=== PATIENT | male | born 1990 | race Caucasian/White ===

== ENCOUNTER 2016-08-28 22:12 | Emergency (ER) | payer OTHER ==
[~2016-08-28] VITALS: Ht 182.9 cm; Wt 98.6 kg
[2016-08-28 23:10] VITALS: BP 135/74
[2016-08-28 23:36] LABS: BASO % 0 % (0-3); EOS % 0 % (0-3); HEMATOCRIT 50.3 % (39.0-53.0); HEMOGLOBIN 16.9 g/dL (13.0-17.5); LYMPH # 1.4 x10^3/uL (1.0-4.8); LYMPH % 16 % (24-48); MEAN CORPUSCULAR HEMOGLOBIN 29 pg (25-35); MEAN CORPUSCULAR HGB CONC 34 g/dL (31-37); MEAN CORPUSCULAR VOLUME 86 fL (79-100); MONO % 17 % (0-9); NEUT % 67 % (31-73); PLATELET COUNT 211 x10^3/uL (140-400); RED BLOOD COUNT 5.83 x10^6/uL (4.30-5.70); RED CELL DISTRIBUTION WIDTH 13.4 % (11.5-14.5); WHITE BLOOD COUNT 8.8 x10^3/uL (4.0-11.0)
[2016-08-28 23:37] LABS: BILIRUBIN,URINE NEGATIVE (NEG); GLUCOSE,URINE NEGATIVE (NEG); NITRITE,URINE NEGATIVE (NEG); PH,URINE 5.5; PROTEIN,URINE NEGATIVE (NEG-TRACE)
[2016-08-28 23:45] LABS: BACTERIA,URINE FEW /HPF (0-FEW); RBC,URINE 0 /HPF (0-2); SQUAMOUS EPITHELIAL CELL,UR FEW /LPF
[2016-08-28] MEDS ORDERED: IV NORMAL SALINE 1000ML BAG 1,000 ML IV ONE (23:45)
[2016-08-28 23:49] LABS: CALCIUM 9.4 mg/dL (8.5-10.1); GFR 89.6; POTASSIUM 3.7 mmol/L (3.5-5.1)
[2016-08-28 23:55] LABS: ALBUMIN 3.6 g/dL (3.4-5.0); DIRECT BILIRUBIN 0.1 mg/dL (0.0-0.2); TOTAL BILIRUBIN 0.6 mg/dL (0.2-1.0); TOTAL PROTEIN 8.5 g/dL (6.4-8.2)
[2016-08-29 00:28] LABS: OBC FLU VALID
[2016-08-29] MEDS ORDERED: CONTRAST GIVEN MC PRN (00:45)
[2016-08-29] MEDS ORDERED: DICYCLOMINE 20 MG/2 ML AMPUL. IM ONE (01:00)
[2016-08-29] MEDS ORDERED: IOHEXOL 300 MG/ML 75 ML VIAL IV ONE (01:00)
--- NOTE | 2016-08-29 02:00 | RAD ---
INDICATION: Abdomen pain. COMPARISON: None TECHNIQUE: Axial CT images obtained through the abdomen and pelvis. Intravenous contrast was utilized. One or more of the following individualized dose reduction techniques were utilized for this examination: 1. Automated exposure control; 2. Adjustment of the mA and/or kV according to patient size; 3. Use of iterative reconstruction technique. FINDINGS: Abdominal aorta not aneurysmal. Mild patchy opacity left lung base. No intrahepatic bile duct dilation. No peripancreatic edema. Spleen unremarkable. No hydronephrosis. No definite evidence of small bowel obstruction. Bladder unremarkable within limits of CT. Appendix does not appear grossly inflamed Small fat containing umbilical hernia. IMPRESSION: The appendix does not appear grossly inflamed. No evidence of bowel obstruction. Mild nodularity at left lung base. Could be infectious or inflammatory in nature. Could also be from nodular atelectasis. Electronically signed by: Zachary Reyes (Aug 29, 2016 01:57:55)
[2016-08-29] MEDS ORDERED: OSEL75CA PO (02:14)
[2016-08-29] MEDS ORDERED: IBUP200T77 PO (02:14)
[2016-08-29] MEDS ORDERED: ONDA4TAB10 SL (02:14)
--- NOTE | 2016-08-29 02:14 | PHYS DOC ---
Past Medical History Past Medical History: Asthma Past Surgical History: No Surgical History Alcohol Use: Occasionally Drug Use: None Adult General Chief Complaint Chief Complaint: ABDOMINAL PAIN HPI HPI 25-year-old male presenting to the emergency department today with nausea vomiting and a recent respiratory illness. He also has abdominal pain that he describes his sharp periumbilical moderate to severe intermittent and present for greater than 24 hours. He recently was seen at the [facility]. Review of systems is negative for chest pain shortness of breath. He has had a cough with fevers muscle aches and chills. All other review of systems is negative unless otherwise noted in history of present illness. Review of Systems Review of Systems SEE ABOVE. Current Medications Current Medications Current Medications Medications (Trade) Dose Ordered Sig/James Start Time Stop Time Status Last Admin Dose Admin Dicyclomine HCl (Bentyl) 10 mg 1X ONCE 08/29/16 01:00 08/29/16 01:01 DC 08/29/16 00:55 10 MG Info (Do NOT chart on this entry -- for MONITORING) 1 each PRN DAILY PRN 08/29/16 00:45 08/29/16 02:39 DC Iohexol (Omnipaque 300 Mg/ml) 75 ml 1X ONCE 08/29/16 01:00 08/29/16 01:01 DC 08/29/16 00:58 75 ML Sodium Chloride (Iv Sodium Chloride 0.9% 1000ml Bag) 1,000 ml @ 1,000 mls/hr 1X ONCE 08/28/16 23:45 08/29/16 00:44 DC 08/28/16 23:34 1,000 MLS/HR Allergies Allergies Allergies Coded Allergies Type Severity Reaction Last Updated Verified No Known Drug Allergies 08/28/16 No Physical Exam Physical Exam Constitutional: Well developed, well nourished, no acute distress, non-toxic appearance. HENT: Normocephalic, atraumatic, bilateral external ears normal, oropharynx moist, no oral exudates, nose normal. [] Eyes: PERRLA, EOMI, conjunctiva normal, no discharge. [] Neck: Normal range of motion, no tenderness, supple, no stridor. Cardiovascular:Heart rate regular rhythm, no murmur [] Lungs & Thorax: Bilateral breath sounds clear to auscultation Abdomen: Soft nontender abdomen without rebound tenderness or guarding present. Negative McBurneys point. Negative Esparza sign. No ecchymosis present. Skin: Warm, dry, no erythema, no rash. [] Back: No tenderness, no CVA tenderness. Extremities: No tenderness, no cyanosis, no clubbing, ROM intact, no edema. [] Neurologic: Alert and oriented X 3, normal motor function, normal sensory function, no focal deficits noted. Psychologic: Affect normal, judgement normal, mood normal. [] Current Patient Data Vital Signs Vital Signs Date Time Temp Pulse Resp B/P Pulse Ox O2 Delivery O2 Flow Rate FiO2 08/28/16 23:10 98.9 79 17 135/74 96 Room Air 98.9 Lab Values Laboratory Tests Test 08/28/16 23:17 08/28/16 23:48 White Blood Count 8.8x10^3/uL (4.0-11.0) Red Blood Count 5.83x10^6/uL (4.30-5.70) H Hemoglobin 16.9g/dL (13.0-17.5) Hematocrit 50.3% (39.0-53.0) Mean Corpuscular Volume 86fL (79-100) Mean Corpuscular Hemoglobin 29pg (25-35) Mean Corpuscular Hemoglobin Concent 34g/dL (31-37) Red Cell Distribution Width 13.4% (11.5-14.5) Platelet Count 211x10^3/uL (140-400) Neutrophils (%) (Auto) 67% (31-73) Lymphocytes (%) (Auto) 16% (24-48) L Monocytes (%) (Auto) 17% (0-9) H Eosinophils (%) (Auto) 0% (0-3) Basophils (%) (Auto) 0% (0-3) Neutrophils # (Auto) 5.9x10^3uL (1.8-7.7) Lymphocytes # (Auto) 1.4x10^3/uL (1.0-4.8) Monocytes # (Auto) 1.5x10^3/uL (0.0-1.1) H Eosinophils # (Auto) 0.0x10^3/uL (0.0-0.7) Basophils # (Auto) 0.0x10^3/uL (0.0-0.2) Urine Color Yellow Urine Clarity Clear Urine pH 5.5 Urine Specific [place] 1.020 Urine Protein Negativemg/dL (NEG-TRACE) Urine Glucose (UA) Negativemg/dL (NEG) Urine Ketones (Stick) 15mg/dL (NEG) Urine Blood Negative (NEG) Urine Nitrite Negative (NEG) Urine Bilirubin Negative (NEG) Urine Urobilinogen Dipstick 1.0mg/dL (0.2 mg/dL) Urine Leukocyte Esterase Negative (NEG) Urine RBC 0/HPF (0-2) Urine WBC 1-4/HPF (0-4) Urine Squamous Epithelial Cells Few/LPF Urine Bacteria Few/HPF (0-FEW) Urine Mucus Mod/LPF Sodium Level 140mmol/L (136-145) Potassium Level 3.7mmol/L (3.5-5.1) Chloride Level 102mmol/L (98-107) Carbon Dioxide Level 23mmol/L (21-32) Anion Gap 15 (6-14) H Blood Urea Nitrogen 11mg/dL (8-26) Creatinine 1.0mg/dL (0.7-1.3) Estimated GFR (Cockcroft-Gault) 89.6 Glucose Level 87mg/dL (70-99) Lactic Acid Level 1.0mmol/L (0.4-2.0) Calcium Level 9.4mg/dL (8.5-10.1) Total Bilirubin 0.6mg/dL (0.2-1.0) Direct Bilirubin 0.1mg/dL (0.0-0.2) Aspartate Amino Transferase (AST) 37U/L (15-37) Alanine Aminotransferase (ALT) 53U/L (16-63) Alkaline Phosphatase 117U/L (46-116) H Troponin I Quantitative < 0.017ng/mL (0.000-0.055) BE-Vob-M-Type Natriuretic Peptide 5pg/mL (0-124) Total Protein 8.5g/dL (6.4-8.2) H Albumin 3.6g/dL (3.4-5.0) Lipase 95U/L (73-393) Influenza Type A Antigen Positive (NEGATIVE) Influenza Type B Antigen Negative (NEGATIVE) Laboratory Tests 08/28/16 23:17 Laboratory Tests 08/28/16 23:17 EKG EKG [] Radiology/Procedures Radiology/Procedures [] Course & Med Decision Making Course & Med Decision Making Pertinent Labs and Imaging studies reviewed. (See chart for details) [] 25-year-old male presenting to the emergency department today with recent respiratory symptoms and nausea with vomiting and abdominal pain. On examination the patient's vital signs afebrile with normal vital signs. Physical exam otherwise unremarkable with a nontender abdomen. Given the nature the patient's description of the abdominal pain being periumbilical blood work and CT the abdomen was obtained which was not suggestive of appendicitis. Influenza testing positive. The patient was prescribed Tamiflu, ibuprofen and Zofran to follow-up with his primary care provider over the next 2-3 days. In the emergency department his pain was treated with intramuscular Bentyl. Dragon Disclaimer Dragon Disclaimer This electronic medical record was generated, in whole or in part, using a voice recognition dictation system. Departure Departure Impression: Primary Impression: Influenza Disposition: HOME, SELF-CARE Condition: STABLE Referrals: ALFREDO ISIDRO (PCP) Patient Instructions: Influenza, Adult Additional Instructions: Thank you for allowing us to participate in your care today. Followup with your primary care physician in 3 days if your symptoms do not improve. If you do not have a primary care provider you can ask for a list of our primary care providers. Return to the emergency department you have any new or concerning findings. This should be evaluated by the primary care physician and any necessary consulting services for continued management within a few days after discharge. Return to emergency room if you have any new or concerning symptoms including but not limited to fever, chills, nausea, vomiting, intractable pain, any new rashes, chest pain, shortness of air, uncontrolled bleeding, difficulty breathing, and/or vision loss. Scripts Ondansetron (Zofran Odt)4 Mg Tab.rapdis1 Tab SL PRN Q8HRS PRN NAUSEA #6 TAB Prov:MARIFER BAUTISTA MD 08/29/16 Ibuprofen 200 Mg [id number] Mg PO PRN Q6HRS PRN INFLAMMATION #30 TAB Prov:MARIFER BAUTISTA MD 08/29/16 Oseltamivir Phosphate (Tamiflu)75 Mg Capsule1 Cap PO BID #10 CAP Prov:MARIFER BAUTISTA MD 08/29/16 MARIFER BAUTISTA MD Aug 29, 2016 02:14
--- NOTE | 2016-08-29 09:24 | EKG ---
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
== END 2016-08-29 02:20 | disposition home or self-care (01) ==
LOC: ER 22:12
DX: J11.1 Influenza due to unidentified influenza virus with other respiratory manifestations (principal); R10.33 Periumbilical pain; J45.909 Unspecified asthma, uncomplicated
CPT/HCPCS: 36415; 74177; 80048; 80076; 81001; 83605; 83690; 83880; 84484; 85027; 87804; 93005; 96360; 96372; 99285; J0500; J7030; Q9967

== ENCOUNTER 2016-11-13 14:51 | Emergency (ER) | payer OTHER ==
[~2016-11-13] VITALS: Ht 177.8 cm; Wt 98.4 kg
[~2016-11-13 14:51] MED LIST: IBUP200T77 PO; ONDA4TAB10 SL; OSEL75CA PO
[2016-11-13 15:28] VITALS: BP 157/70
[2016-11-13] MEDS ORDERED: LIDOCAINE 1% / SOD BICARB 8.4% 20 ML VIAL. IJ ONE (15:30)
--- NOTE | 2016-11-13 15:37 | PHYS DOC ---
Past Medical History Past Medical History: Asthma Past Surgical History: No Surgical History Alcohol Use: Occasionally Drug Use: None Adult General Chief Complaint Chief Complaint: INSECT BITE HPI HPI Patient is a 26 year old male presents to the emergency stating he has had a 3 day history of an area on the right lower perineal area that is tender to touch. Patient states he has had drainage coming from the area with increase pain. Tetanus immunization is up to date. Patient denies fever, chills or any nausea vomiting. Review of Systems Review of Systems Constitutional: Denies fever or chills [] Eyes: Denies change in visual acuity, redness, or eye pain [] HENT: Denies nasal congestion or sore throat [] Respiratory: Denies cough or shortness of breath [] Cardiovascular: No additional information not addressed in HPI [] GI: Denies abdominal pain, nausea, vomiting, bloody stools or diarrhea [] : Denies dysuria or hematuria [] Musculoskeletal: Denies back pain or joint pain [] Integument: Denies rash or skin lesions [] Neurologic: Denies headache, focal weakness or sensory changes [] Current Medications Current Medications Current Medications Medications (Trade) Dose Ordered Sig/James Start Time Stop Time Status Last Admin Dose Admin Lidocaine/Sodium Bicarbonate (Buffered Lidocaine 1%) 20 ml 1X ONCE 11/13/16 15:30 11/13/16 15:31 DC 11/13/16 15:41 20 ML Allergies Allergies Allergies Coded Allergies Type Severity Reaction Last Updated Verified No Known Drug Allergies 08/28/16 No Physical Exam Physical Exam Constitutional: Well developed, well nourished, no acute distress, non-toxic appearance. [] HENT: Normocephalic, atraumatic, bilateral external ears normal, oropharynx moist, no oral exudates, nose normal. [] Eyes: PERRLA, EOMI, conjunctiva normal, no discharge. [] Neck: Normal range of motion, no tenderness, supple, no stridor. [] Cardiovascular:Heart rate regular rhythm, no murmur [] Lungs & Thorax: Bilateral breath sounds clear to auscultation [] Skin: Warm, dry, no erythema, no rash. Abscess noted to the right lower buttocks area. Patient with slight drainage noted from the site. The areas very tender to touch and feels indurated. The size is approximately marble size. Back: No tenderness Extremities: No tenderness, no cyanosis, no clubbing, ROM intact, no edema. [] Neurologic: Alert and oriented X 3, normal motor function, normal sensory function, no focal deficits noted. [] Psychologic: Affect normal, judgement normal, mood normal. [] Current Patient Data Vital Signs Vital Signs Date Time Temp Pulse Resp B/P (MAP) Pulse Ox O2 Delivery O2 Flow Rate FiO2 11/13/16 15:28 99.2 93 20 97 Room Air 99.2 EKG EKG [] Radiology/Procedures Radiology/Procedures [] Course & Med Decision Making Course & Med Decision Making Pertinent Labs and Imaging studies reviewed. (See chart for details) Patient was encouraged to use warm moist packs to the area. Have the packing removed in 48 hours. He'll be provided with antibiotics as well as hydrocodone for pain and discomfort. He was instructed that this medication will cause drowsiness do not take if he needs to be alert and oriented. Also informed patient he can take ibuprofen 800 mg every 8 hours also help with pain and inflammation. Patient will be discharged home in stable condition signs symptoms to return back to emergency department provided. Patient agrees with discharge instructions treatment regimens and follow-up recommendations. [] Dragon Disclaimer Dragon Disclaimer This electronic medical record was generated, in whole or in part, using a voice recognition dictation system. Departure Departure Impression: Primary Impression: Abscess Disposition: 01 HOME, SELF-CARE Condition: STABLE Referrals: ALFREDO ISIDRO (PCP) Patient Instructions: Abscess, [id number], Acetaminophen; Hydrocodone tablets or capsules, Incision and Drainage, Care After Additional Instructions: Activity as tolerated Medication as prescribed [place] will cause drowsiness do not take if you need to be alert and oriented Ibuprofen 800 mg every 8 hours with food, stop taking if you develop upset stomach Followup with your primary care provider in 2-3 days for packing removal Return to emergency department as needed for signs and symptoms that become worse. Scripts Hydrocodone/Apap 5-325 (NORCO 5-325 TABLET) 1 Each Tablet 1 TAB PO PRN Q6HRS Y for PAIN, #12 TAB 0 Refills Prov: MISSY WELLINGTON APRN 11/13/16 Sulfamethoxazole/Trimethoprim (BACTRIM DS TABLET) 1 Each Tablet 1 TAB PO BID, #20 TAB Prov: MISSY WELLINGTON APRN 11/13/16 Incision and Drainage Incision and Drainage : Site: rigth buttock Blade Size: 11 I & D Procedure: betadine prep Progress Patient was injected with 6 ml of 1% lidocaine with site cleaned with betadine. #11 blade was used to incise the area with moderate amount of thin blood to thick yellow discharge noted. Packing was placed. MISSY WELLINGTON APRN November 13, 2016 15:37
[2016-11-13] MEDS ORDERED: SULF1TAB24 PO (15:55)
[2016-11-13] MEDS ORDERED: HYDR-971 PO (15:55)
== END 2016-11-13 16:20 | disposition home or self-care (01) ==
LOC: ER 16:19
DX: L02.31 Cutaneous abscess of buttock (principal); J45.909 Unspecified asthma, uncomplicated
CPT/HCPCS: 10060; 99283-25

== ENCOUNTER 2017-01-05 05:27 | Emergency (ER) | payer OTHER ==
[~2017-01-05] VITALS: Ht 177.8 cm; Wt 102.1 kg
[~2017-01-05 05:27] MED LIST changes: +HYDR-971 PO; +SULF1TAB24 PO
[2017-01-05] MEDS ORDERED: predniSONE 20 MG TABLET PO ONE ×2 (06:15)
[2017-01-05] MEDS ORDERED: IPRATRPIUM/ALBUTEROL 0.5/2.5MG 3 ML NEBU. NEB ONE (06:15)
--- NOTE | 2017-01-05 06:21 | PHYS DOC ---
Past Medical History Past Medical History: Asthma Past Surgical History: No Surgical History Alcohol Use: None Drug Use: None Adult General Chief Complaint Chief Complaint: ASTHMA HPI HPI 26-year-old male with a history of asthma complaining of wheezing. Patient is not a smoker and he does not have productive cough or fever. He is not feeling she has respiratory illness. Exacerbation of asthma typical for him but refractory to his home nebulizer therapy. Patient is out of his inhaler as well as his inhaled steroid. Patient is not currently on steroids. Other than his wheezing he feels well Review of Systems Review of Systems Constitutional: Denies fever or chills [] Eyes: Denies change in visual acuity, redness, or eye pain [] HENT: Denies nasal congestion or sore throat [] Respiratory: Denies cough or shortness of breath [] Cardiovascular: No additional information not addressed in HPI [] GI: Denies abdominal pain, nausea, vomiting, bloody stools or diarrhea [] : Denies dysuria or hematuria [] Musculoskeletal: Denies back pain or joint pain [] Integument: Denies rash or skin lesions [] Neurologic: Denies headache, focal weakness or sensory changes [] Endocrine: Denies polyuria or polydipsia [] Current Medications Current Medications Current Medications Medications (Trade) Dose Ordered Sig/James Start Time Stop Time Status Last Admin Dose Admin Albuterol/ Ipratropium (Duoneb) 3 ml 1X ONCE 01/05/17 06:15 01/05/17 06:16 DC 01/05/17 06:17 3 ML Prednisone (Prednisone) 20 mg 1X ONCE 01/05/17 06:15 01/05/17 06:18 DC 01/05/17 06:16 20 MG Allergies Allergies Allergies Coded Allergies Type Severity Reaction Last Updated Verified No Known Drug Allergies 08/28/16 No Physical Exam Physical Exam Well-appearing male no acute distress alert and communicative appropriately and cooperative. Mild wheezing expiratory bilaterally. No rhonchi or rales. Normal respiratory rate and pulse ox on room air. No tachycardia Remainder of exam is benign Constitutional: Well developed, well nourished, no acute distress, non-toxic appearance. [] HENT: Normocephalic, atraumatic, bilateral external ears normal, oropharynx moist, no oral exudates, nose normal. [] Eyes: PERRLA, EOMI, conjunctiva normal, no discharge. [] Neck: Normal range of motion, no tenderness, supple, no stridor. [] Cardiovascular:Heart rate regular rhythm, no murmur [] Lungs & Thorax: Bilateral breath sounds clear to auscultation [] Abdomen: Bowel sounds normal, soft, no tenderness, no masses, no pulsatile masses. [] Skin: Warm, dry, no erythema, no rash. [] Back: No tenderness, no CVA tenderness. [] Extremities: No tenderness, no cyanosis, no clubbing, ROM intact, no edema. [] Neurologic: Alert and oriented X 3, normal motor function, normal sensory function, no focal deficits noted. [] Psychologic: Affect normal, judgement normal, mood normal. [] Current Patient Data Vital Signs Vital Signs Date Time Temp Pulse Resp B/P (MAP) Pulse Ox O2 Delivery O2 Flow Rate FiO2 01/05/17 06:19 98 Room Air 01/05/17 05:56 98.1 80 20 98.1 EKG EKG [] Radiology/Procedures Radiology/Procedures chest xr with chronic changes, nad interpreted by me[] Course & Med Decision Making Course & Med Decision Making Pertinent Labs and Imaging studies reviewed. (See chart for details) History,, symptoms, and exam consistent with uncomplicated asthma exacerbation. X-ray unremarkable. No infectious prodrome Patient improved after treatment. Steroids administered. 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 She states he is out of his albuterol ampules and this will be prescribed for him. Patient also be dispensed prednisone prescription as well as Symbicort inhaler prescription and a new MDI. follow up with his primary care doctor and He is aware to return immediately for new severe or worsening symptoms Dragon Disclaimer Dragon Disclaimer This electronic medical record was generated, in whole or in part, using a voice recognition dictation system. Departure Departure Disposition: 01 HOME, SELF-CARE Condition: IMPROVED Referrals: ALFREDO ISIDRO (PCP) Patient Instructions: Asthma, Adult Additional Instructions: You have had an asthma exacerbation today. Finish prednisone as rx. use albuterol nebs and mdi as needed. use inhaled steroid for 14 days then as directed by your doctor. Follow up with your doctor tomorrow and return immediately for new , severe, or worsening symptoms. Scripts Budesonide/Formoterol Fumarate (SYMBICORT 160-4.5 MCG INHALER) 10.2 Gm Hfa.aer.ad 2 PUFF IH BID for 14 Days, #1 INHALER 3 Refills Prov: YOKASTA HERNANDEZ MD 01/05/17 Albuterol Sulfate (PROVENTIL HFA INHALER) 6.7 Gm Hfa.aer.ad 1 PUFF IH PRN Q4HRS Y for FOR ASTHMA for 1 Day, INHALER Prov: YOKASTA HERNANDEZ MD 01/05/17 Prednisone (PREDNISONE) 50 Mg Tablet 1 TAB PO DAILY, #5 TAB Prov: YOKASTA HERNANDEZ MD 01/05/17 Albuterol Sulfate (ALBUTEROL SULFATE NEB SOLN) 2.5 Mg/3 Ml Vial.neb 1 VIAL NEB PRN Q4HRS Y for WHEEZING, #50 VIAL Prov: YOKASTA HERNANDEZ MD 01/05/17 YOKASTA HERNANDEZ MD Jan 05, 2017 06:21
--- NOTE | 2017-01-05 07:15 | RAD ---
Portable AP upright view CXR: Clinical indications: Respiratory distress. History of asthma. Comparison: November 07, 2009 Findings: No acute lung infiltrate or pleural effusion or pulmonary edema or lung mass or pneumothorax is seen. The heart size, pulmonary vasculature, mediastinum and both isael are unremarkable. Impression: No acute radiographic abnormality is seen.
--- NOTE | 2017-01-05 07:18 | ACF ---
Admission Forms Criteria ASTHMA Clinical Indications for Admission to Inpatient Care (Place 'X' for any and all applicable criteria): Admission is indicated for ANY ONE of the following (1)(2)(3)(4)(5): [ ]I. Absent or markedly diminished breath sounds (silent chest) [ ]II. Oxygen saturation < 92% [ ]III. PaCO2 = / > 42 mm Hg (5.6 kPa) [ ]IV. Peak expiratory flow rate < 40% of predicted or personal best after treatment. [ ]V. Peak expiratory flow rate < 33% of predicted or personal before after treatment [ ]. Change in mental status [ ]VII. Ventilatory support required [ ]VIII. PaO2 < 60 mm Hg (8.0 kPa) [ ]IX. Cyanosis [ ]X. Cardiac dysrhythmia (e.g., bradycardia) [ ]XI. Hemodynamic instability [ ]XII. Radiographic evidence of complication requiring inpatient treatment (e.g., pneumonia, pneumothorax) [ ]XIII. Inpatient admission required rather than observation care (also use Asthma: Observation Care guideline as appropriate) because of ANY ONE of the following: [ ]a) Respiratory finding that is severe or persistent (eg, dyspnea, tachypnea, accessory muscle use) [ ]b) Airflow measurements less than 60% of predicted or personal best that persist (e.g., over 24 hours) or worsen despite treatments [ ]c) Supplemental oxygen or respiratory treatments for over 24 hours that are performable only in acute inpatient setting [ ]d) Other condition, treatment or monitoring requiring inpatient admission. Extended stay beyond goal length of stay may be needed for (26)(27)(28): [ ]a) Severe respiratory failure (23) (29) (30) [ ]b) Secondary causes and complications (25) [ ]c) Status asthmaticus [ ]d) Chronic obstructive asthma [ ]e) Older patients (29) [ ]f) Slow resolution [ ]g) Clinically significant exacerbation of comorbidities (eg, farhad. heart failure, atrial fibrillation) The original [employer] content created by [employer] has been revised. The portions of the content which have been revised are identified through the use of italic text or in bold, and [employer] has neither reviewed nor approved the modified material. All other unmodified content is copyright [facility] [employer] Please see references footnoted in the original [facility] edition 2016 ANISHA CHERY Jan 05, 2017 07:18
[2017-01-05] MEDS ORDERED: PROVENTIL HFA6.7 GM IH (07:28)
[2017-01-05] MEDS ORDERED: PRED50TA PO (07:28)
[2017-01-05] MEDS ORDERED: BUDE10.2 IH (07:28)
[2017-01-05] MEDS ORDERED: ALBU2.5V5 NEB (07:28)
[2017-01-05 07:55] VITALS: BP 131/72
== END 2017-01-05 08:04 | disposition home or self-care (01) ==
LOC: ER 05:27
DX: J45.901 Unspecified asthma with (acute) exacerbation (principal); Z79.899 Other long term (current) drug therapy
CPT/HCPCS: 71010; 94640; 99283; J7512; J7620

== ENCOUNTER 2017-01-08 05:12 | Emergency (ER) | payer OTHER ==
[~2017-01-08] VITALS: Ht 177.8 cm; Wt 99.8 kg
[~2017-01-08 05:12] MED LIST changes: +ALBU2.5V5 NEB; +BUDE10.2 IH; +PRED50TA PO; +PROVENTIL HFA6.7 GM IH
--- NOTE | 2017-01-08 05:14 | PHYS DOC ---
Past Medical History Past Medical History: Asthma Past Surgical History: No Surgical History Alcohol Use: None Drug Use: None Adult General Chief Complaint Chief Complaint: INSECT BITE HPI HPI Patient is a 26 year old -[place] male who presents with sore on his right buttocks. He states his been there since . He denies any fevers chills nausea or vomiting. He states is getting more sore. He states his tetanus shot was updated 2016. He states is not on any medicines other than albuterol for his asthma. He denies any allergies medications. Review of Systems Review of Systems Constitutional: Denies fever or chills [] Eyes: Denies change in visual acuity, redness, or eye pain [] HENT: Denies nasal congestion or sore throat [] Respiratory: Denies cough or shortness of breath [] Cardiovascular: No additional information not addressed in HPI [] GI: Denies abdominal pain, nausea, vomiting, bloody stools or diarrhea [] : Denies dysuria or hematuria [] Musculoskeletal: Denies back pain or joint pain [] Integument: Positive for rash on right buttocks. Neurologic: Denies headache, focal weakness or sensory changes [] Endocrine: Denies polyuria or polydipsia [] Current Medications Current Medications Current Medications Medications (Trade) Dose Ordered Sig/James Start Time Stop Time Status Last Admin Dose Admin Clindamycin HCl (Cleocin) 300 mg 1X ONCE 01/08/17 06:00 01/08/17 06:01 01/08/17 05:56 300 MG Lidocaine/Sodium Bicarbonate (Buffered Lidocaine 1%) 20 ml 1X ONCE 01/08/17 05:30 01/08/17 05:31 DC 01/08/17 05:37 20 ML Allergies Allergies Allergies Coded Allergies Type Severity Reaction Last Updated Verified No Known Drug Allergies 08/28/16 No Physical Exam Physical Exam Constitutional: Well developed, well nourished, no acute distress, non-toxic appearance. [] HENT: Normocephalic, atraumatic, bilateral external ears normal, oropharynx moist, no oral exudates, nose normal. [] Eyes: PERRLA, EOMI, conjunctiva normal, no discharge. [] Neck: Normal range of motion, no tenderness, supple, no stridor. [] Cardiovascular:Heart rate regular rhythm, no murmur [] Lungs & Thorax: Bilateral breath sounds clear to auscultation [] Abdomen: Bowel sounds normal, soft, no tenderness, no masses, no pulsatile masses. [] Skin: Warm, dry, erythema partially 5 x 5 cm and right buttocks with induration of 2 x 3 cm Back: No tenderness, no CVA tenderness. [] Extremities: No tenderness, no cyanosis, no clubbing, ROM intact, no edema. [] Neurologic: Alert and oriented X 3, normal motor function, normal sensory function, no focal deficits noted. [] Psychologic: Affect normal, judgement normal, mood normal. [] Current Patient Data Vital Signs Vital Signs Date Time Temp Pulse Resp B/P (MAP) Pulse Ox O2 Delivery O2 Flow Rate FiO2 01/08/17 05:15 97.7 76 16 98 Room Air 97.7 EKG EKG [] Radiology/Procedures Radiology/Procedures [] Impressions: Abscess on buttocks Course & Med Decision Making Course & Med Decision Making Pertinent Labs and Imaging studies reviewed. (See chart for details) [] Dragon Disclaimer Dragon Disclaimer This electronic medical record was generated, in whole or in part, using a voice recognition dictation system. Departure Departure Impression: Primary Impression: Abscess Disposition: HOME, SELF-CARE Condition: STABLE Referrals: ALFREDO ISIDRO (PCP) Patient Instructions: Abscess, Care After Additional Instructions: You were seen tonight for your abscess on her butt cheek. We opened it and try to drain out the infection and placed a small piece of gauze in it to help it drain. You will need to be on antibiotics for the next 10 days. He can take pain meds as needed. The pain meds or narcotic type medicine and can impair judgment and make you sleepy so do not drive your car while taking this medicine. Return ER in 3 days. If your wound gets worse, or painful, he developed fevers or other concerns please return sooner. Scripts Clindamycin Hcl (CLINDAMYCIN HCL) 300 Mg Capsule 300 MG PO TID for 10 Days, #30 CAP Prov: KILLIAN MELVIN MD 01/08/17 Hydrocodone/Apap 5-325 (NORCO 5-325 TABLET) 1 Each Tablet 1-2 TAB PO Q6HRS, #12 TAB Prov: KILLIAN MELVIN MD 01/08/17 Incision and Drainage Indication: abscess Procedure: The patient was positioned appropriately. Local anesthesia was for 3 mL of buffered lidocaine. An incision was then made over the apex of the lesion and small amount of purulent discharge material was expressed. The cavity was packed with iodoform gauze. The patients tetanus status updated as needed. The patient tolerated the procedure well. Complications: none. KILLIAN MELVIN MD Jan 08, 2017 05:14
[2017-01-08 05:15] VITALS: BP 144/90
[2017-01-08] MEDS ORDERED: HYDR-971 PO (05:27)
[2017-01-08] MEDS ORDERED: CLIN300C8 PO (05:27)
[2017-01-08] MEDS ORDERED: LIDOCAINE 1% / SOD BICARB 8.4% 20 ML VIAL. IJ ONE (05:30)
[2017-01-08] MEDS ORDERED: CLINDAMYCIN HCL 150 MG CAPSULE. PO ONE (06:00)
== END 2017-01-08 06:11 | disposition home or self-care (01) ==
LOC: ER 05:12
DX: L02.31 Cutaneous abscess of buttock (principal); J45.909 Unspecified asthma, uncomplicated
CPT/HCPCS: 10060; 87070; 87205; 99284-25

== ENCOUNTER 2017-04-29 15:20 | Emergency (ER) | payer SELFPAY ==
[~2017-04-29] VITALS: Ht 177.8 cm; Wt 99.8 kg
[~2017-04-29 15:20] MED LIST changes: +CLIN300C8 PO
[2017-04-29 15:55] VITALS: BP 144/89
[2017-04-29] MEDS ORDERED: BENZ100C PO (16:14)
[2017-04-29] MEDS ORDERED: VENTOLIN HFA18 GM INH (16:14)
[2017-04-29] MEDS ORDERED: GUAI-40 PO (16:14)
--- NOTE | 2017-04-29 16:14 | PHYS DOC ---
Past Medical History Past Medical History: Asthma Past Surgical History: No Surgical History Alcohol Use: None Drug Use: None Adult General Chief Complaint Chief Complaint: SORE THROAT HPI HPI Patient is a 26 year old male who presents with a productive cough, nasal congestion and sore throat that began 2 days ago. Review of Systems Review of Systems Constitutional: Denies fever or chills [] Eyes: Denies change in visual acuity, redness, or eye pain [] HENT: nasal congestion and sore throat [] Respiratory: cough denies shortness of breath [] Cardiovascular: No additional information not addressed in HPI [] GI: Denies abdominal pain, nausea, vomiting, bloody stools or diarrhea [] : Denies dysuria or hematuria [] Musculoskeletal: Denies back pain or joint pain [] Integument: Denies rash or skin lesions [] Neurologic: Denies headache, focal weakness or sensory changes [] Allergies Allergies Allergies Coded Allergies Type Severity Reaction Last Updated Verified I S O L A T I O N *CONTACT* Allergy Unknown 01/11/17 Yes No Known Medication Allergies Allergy Unknown 01/11/17 Yes Physical Exam Physical Exam Constitutional: Well developed, well nourished, no acute distress, non-toxic appearance. [] HENT: Normocephalic, atraumatic, bilateral external ears normal, oropharynx moist, no oral exudates, nose normal. [] Eyes: PERRLA, EOMI, conjunctiva normal, no discharge. [] Neck: Normal range of motion, no tenderness, supple, no stridor. [] Cardiovascular:Heart rate regular rhythm, no murmur [] Lungs & Thorax: Bilateral breath sounds clear to auscultation [] Abdomen: Bowel sounds normal, soft, no tenderness, no masses, no pulsatile masses. [] Skin: Warm, dry, no erythema, no rash. [] Back: No tenderness, no CVA tenderness. [] Extremities: No tenderness, no cyanosis, no clubbing, ROM intact, no edema. [] Neurologic: Alert and oriented X 3, normal motor function, normal sensory function, no focal deficits noted. [] Psychologic: Affect normal, judgement normal, mood normal. [] Current Patient Data Vital Signs Vital Signs Date Time Temp Pulse Resp B/P (MAP) Pulse Ox O2 Delivery O2 Flow Rate FiO2 04/29/17 15:55 98.4 85 20 99 Room Air 98.4 EKG EKG [] Radiology/Procedures Radiology/Procedures [] Course & Med Decision Making Course & Med Decision Making Pertinent Labs and Imaging studies reviewed. (See chart for details) This is a 26-year-old male patient presented to the ED today with upper respiratory infection symptoms including running nose, cough and sore throat. Negative rapid strep. Symptoms are viral. Discharged with Mucinex DM. Tylenol/ Motrin for pain or fever. He requested a prescription for albuterol inhaler for his asthma. Rx was given. Follow-up with his PCP in 1-2 weeks. Dragon Disclaimer Dragon Disclaimer This electronic medical record was generated, in whole or in part, using a voice recognition dictation system. Departure Departure Impression: Primary Impression: Upper respiratory infection Additional Impressions: Viral pharyngitis Cough Disposition: HOME, SELF-CARE Condition: STABLE Referrals: ALFREDO ISIDRO (PCP) follow up in one weeK Patient Instructions: Cough, Adult, [id number], Upper Respiratory Infection, Adult, Viral Pharyngitis Additional Instructions: You were seen with symptoms consistent of viral illness. Use the prescribed medicines as ordered. Follow-up with your doctor in 1-2 weeks. Rest, push fluids. Take Tylenol every 4 hours and Motrin 6 hours as needed for pain. Scripts Guaifenesin/Pseudoephedrne Hcl (MUCINEX D ER TABLET) 1 Each Tab.er.12h 1 TAB PO BID, #20 TAB Prov: CRISTINA GUADALUPE APRN 04/29/17 Benzonatate (TESSALON PERLE) 100 Mg Capsule 1 CAP PO TID, #30 CAP Prov: CRISTINA GUADALUPE APRN 04/29/17 Albuterol Sulfate (VENTOLIN HFA INHALER) 18 Gm Hfa.aer.ad 2 PUFF INH Q4HRS for FOR ASTHMA, #1 INHALER 0 Refills Prov: CRISTINA GUADALUPE APRN 04/29/17 Problem Qualifiers Primary Impression: Upper respiratory infection URI type: unspecified URI Qualified Codes: J06.9 - Acute upper respiratory infection, unspecified CRISTINA GUADALUPE APRN Apr 29, 2017 16:14
[2017-04-30 09:22] LABS: NEGATIVE OBC STREP NEG; POSITIVE OBC STREP POS
== END 2017-04-29 16:27 | disposition home or self-care (01) ==
LOC: ER 15:20
DX: J06.9 Acute upper respiratory infection, unspecified (principal); J02.8 Acute pharyngitis due to other specified organisms; B97.89 Other viral agents as the cause of diseases classified elsewhere; J45.909 Unspecified asthma, uncomplicated; Z91.041 Radiographic dye allergy status
CPT/HCPCS: 87070; 87880; 99283